=== PATIENT | female | born 1980 | race Caucasian/White ===

== ENCOUNTER 2017-06-04 22:26 | Emergency (ER) | payer MEDICAID, OTHER ==
[~2017-06-04] VITALS: Ht 162.6 cm; Wt 84.4 kg
[2017-06-04 22:39] VITALS: BP 130/85
[2017-06-04] MEDS ORDERED: GUAIFENESIN/COD200MG-20MG/10ML LIQUID PO ONE (23:30)
== END 2017-06-05 00:09 | disposition home or self-care (01) ==
LOC: ED 23:30
DX: J20.8 Acute bronchitis due to other specified organisms (principal)
CPT/HCPCS: 71020; 99284; J7512

== ENCOUNTER 2017-07-04 16:37 | Emergency (ER) | payer MEDICAID, OTHER ==
[~2017-07-04] VITALS: Ht 162.6 cm; Wt 87.3 kg
[2017-07-04 16:39] VITALS: BP 127/85
[2017-07-04] MEDS ORDERED: ALBUTEROL SULFATE 2.5 MG/3 ML NPPB ONE (18:00)
[2017-07-04] MEDS ORDERED: ALBUTEROL SULFATE 2.5 MG/3 ML ONE (18:10)
== END 2017-07-04 18:41 | disposition home or self-care (01) ==
LOC: ED 18:35
DX: J02.8 Acute pharyngitis due to other specified organisms (principal)
CPT/HCPCS: 71020; 94640; 99284; J7613